=== PATIENT | male | born 1980 | race Caucasian/White ===

== ENCOUNTER 2016-07-27 15:16 | Inpatient (IN) | payer BC ==
[~2016-07-27] VITALS: Ht 190.5 cm; Wt 89.5 kg
[~2016-07-27 15:16] MED LIST: CYAN100061 SL; LEVO500T10 PO
[2016-07-27 15:31] VITALS: Ht 190.5 cm; Wt 89.5 kg
[2016-07-27] MEDS ORDERED: morphine 4 MG/ML VIAL IV STA ×2 (15:37→17:44)
[2016-07-27] MEDS ORDERED: ONDANSETRON 4 MG INJ IV STA (15:37)
[2016-07-27] MEDS ORDERED: SOD CHLORIDE 0.9% 1,000 ML IV STA (15:55)
[2016-07-27 15:56] LABS: ADD SCAN DIFF NO
[2016-07-27 15:57] LABS: BASOPHILS % 0.5 % (0.0-2.0); EOSINOPHILS % 0.7 % (0.0-7.0); HEMATOCRIT 43.6 % (42.0-52.0); HEMOGLOBIN 14.7 g/dl (14.0-18.0); LYMPHOCYTES # 1.8 10^3/ul (0.8-2.9); LYMPHOCYTES % 28.8 % (15.0-51.0); MEAN CORPUSCULAR HEMOGLOBIN 31.1 pg (29.0-33.0); MEAN CORPUSCULAR HGB CONC 33.7 g/dl (32.0-37.0); MEAN CORPUSCULAR VOLUME 92.2 fl (82.0-101.0); MEAN PLATELET VOLUME 11.9 fl (7.4-10.4); MONOCYTE # 0.7 10^3/ul (0.3-0.9); MONOCYTES % 11.2 % (0.0-11.0); NEUTROPHIL # 3.5 10^3/ul (1.6-7.5); NEUTROPHILS % 58.3 % (39.0-77.0); PLATELET COUNT 121 10^3/UL (140-415); RED BLOOD COUNT 4.73 10^6/ul (4.70-6.10); RED CELL DISTRIBUTION WIDTH 12.6 % (11.5-14.5); WHITE BLOOD COUNT 6.1 10^3/ul (4.8-10.8)
--- NOTE | 2016-07-27 15:58 | ERA ---
ER Documentation Chief Complaint Date/Time DATE: 07/27/16 TIME: 15:35 Chief Complaint CAME IN VIA INTAKE DUE TO EXTREME GROIN PAIN DUE TO HERNIA HPI 35-year-old male history of gastritis/GERD, vitamin B12 deficiency, varicocele, epididymitis and inguinal hernias refer to the ED by Dr. Marky Phillips for evaluation of a 1 day history of increasing, severe, nonradiating left groin pain. Patient denies nausea, vomiting, diarrhea or constipation. No testicular pain or swelling. No dysuria, polyuria or flank pain. Pain is exacerbated by straining. No relieving factors. No chest pain or palpitations. No shortness of breath or cough. No fevers or chills. ROS All systems reviewed and are negative except as per history of present illness. Medications Home Meds Discontinued Reported Medications Levofloxacin* (Levofloxacin*) 500 Mg Tablet, 500 MG PO DAILY for FOR TESTICLE INFECTION, TAB 12/30/15 Cyanocobalamin* (Vitamin B-12* SL) 1,000 Mcg Tab.subl, 1000 MCG SL Q7D, TAB 08/13/15 Allergies Allergies: Coded Allergies: No Known Allergy (Verified , 07/27/16) PMhx/Soc Reviewed in chart. As per HPI. History of Surgery: No Anesthesia Reaction: No Hx Neurological Disorder: No Hx Respiratory Disorders: No Hx Cardiac Disorders: No Hx Psychiatric Problems: No Hx Miscellaneous Medical Probl: Yes (VITAMIN B12 DEFICIENCY.) Hx Alcohol Use: Yes (OCCASIONAL) Hx Substance Use: No Hx Tobacco Use: No Smoking Status: Never smoker FmHx No stroke or cancer Physical Exam Vitals Vital Signs Date Time Temp Pulse Resp B/P Pulse Ox O2 Delivery O2 Flow Rate FiO2 07/27/16 15:31 98.4 81 18 112/66 100 07/27/16 15:20 98.3 20 112/66 Room Air Physical Exam Const: Alert, moderate distress due to pain Head: Atraumatic Eyes: Normal Conjunctiva ENT: Normal External Ears, Nose and Mouth. Neck: Full range of motion..~ No meningismus. Resp: Clear to auscultation bilaterally Cardio: Regular rate and rhythm, no murmurs Abd: Soft. Bilateral inguinal hernias with left greater than right groin tenderness. Mild periumbilical tenderness. No masses or abnormal pulsations. No rebound or guarding. Skin: No petechiae or rashes Back: No midline or flank tenderness Ext: No cyanosis, or edema Neur: Awake and alert Psych: Normal Mood and Affect Result Diagram: 07/27/16 1545 07/27/16 1545 Results 24 hrs Laboratory Tests Test 07/27/16 15:45 Activated Partial Thromboplast Time 25.2Sec Alanine Aminotransferase (ALT/SGPT) 21IU/L Albumin 4.2g/dl Albumin/Globulin Ratio 1.40 Alkaline Phosphatase 82IU/L Anion Gap 17 Aspartate Amino Transf (AST/SGOT) 22IU/L Basophils # 0.010^3/ul Basophils % 0.5% Blood Urea Nitrogen 17mg/dl Calcium Level 9.3mg/dl Carbon Dioxide Level 26mmol/L Chloride Level 103mmol/L Creatinine 0.91mg/dl Direct Bilirubin 0.00mg/dl Eosinophils # 0.010^3/ul Eosinophils % 0.7% Globulin 3.00g/dl Glucose Level 86mg/dl Hematocrit 43.6% Hemoglobin 14.7g/dl INR International Normalized Ratio 0.91 Indirect Bilirubin 0.2mg/dl Lymphocytes # 1.810^3/ul Lymphocytes % 28.8% Mean Corpuscular Hemoglobin 31.1pg Mean Corpuscular Hemoglobin Concent 33.7g/dl Mean Corpuscular Volume 92.2fl Mean Platelet Volume 11.9fl Monocytes # 0.710^3/ul Monocytes % 11.2% Neutrophils # 3.510^3/ul Neutrophils % 58.3% Nucleated Red Blood Cells # 0.010^3/ul Nucleated Red Blood Cells % 0.0/100WBC Platelet Count 84103^3/UL Potassium Level 3.8mmol/L Prothrombin Time 12.2Sec Prothrombin Time Ratio 1.0 Red Blood Count 4.7310^6/ul Red Cell Distribution Width 12.6% Sodium Level 142mmol/L Total Bilirubin 0.2mg/dl Total Protein 7.2g/dl White Blood Count 6.110^3/ul Current Medications Medications (Trade) Dose Ordered Sig/Néstor Route PRN Reason Start Time Stop Time Status Last Admin Dose Admin Morphine Sulfate (morphine) 4 mg ONCE STAT IV 07/27/16 15:37 07/27/16 15:39 DC 07/27/16 15:48 Ondansetron HCl 4 mg 4 mg ONCE STAT IV 07/27/16 15:37 07/27/16 15:39 DC 07/27/16 15:48 Sodium Chloride (NS) 1,000 ml @ 1,000 mls/hr Q1H STAT IV 07/27/16 15:55 07/27/16 16:54 DC 07/27/16 20:03 IV Flush 10 ml 10 ml STK-MED ONCE .ROUTE 07/27/16 17:21 07/27/16 17:22 DC 07/27/16 17:36 Sodium Chloride (NS) 100 ml @ ud STK-MED ONCE .ROUTE 07/27/16 17:21 07/27/16 17:22 DC 07/27/16 17:36 Iohexol (Omnipaque 300mg/ ml) 150 ml STK-MED ONCE .ROUTE 07/27/16 17:21 07/27/16 17:22 DC 07/27/16 17:36 Morphine Sulfate (morphine) 4 mg ONCE STAT IV 07/27/16 17:44 07/27/16 17:45 DC IMAGING: PROCEDURE: XR Chest. CLINICAL INDICATION: Abdomen pain. TECHNIQUE: Single frontal view. COMPARISON: 08/13/2015. FINDINGS: The lungs are clear. The heart size is normal. There is no pleural effusion. There is no pneumothorax. IMPRESSION: 1. Normal chest radiograph. 2. No change from 08/13/2015. RPTAT: QQ .Orion Oakley MD, Date Time Electronically viewed and signed by .Orion Oakley MD, on 07/27/2016 17:30 .R/ Procedures/MDM DOCUMENTS REVIEWED: ED nurse, prior ED, prior records REEXAMINATION/REEVALUATION: Time: 17:55. Increasing pain. Morphine 4 mg ordered. MEDICAL DECISION MAKIN-year-old male history of gastritis/GERD, vitamin B12 deficiency, varicocele, epididymitis and inguinal hernias refer to the ED by Dr. Marky Phillips for evaluation of a 1 day history of increasing, severe, nonradiating left groin pain. CT consistent with bilateral inguinal hernias and umbilical hernia containing fat only. No evidence of obstruction, strangulation or herniation. No other acute intra-abdominal process identified. Patient with intractable pain will be admitted to [facility] for urgent surgical consultation and intervention. Counseled patient regarding diagnosis, diagnostic results and plan for admission. CALLS/CONSULTS: Time 15:45, Dr. Taj Phillips, Recommends CT scan of the abdomen and pelvis at admission to [facility]. CALLS/CONSULTS: Time 17:40, Dr. Rey PATIENT CARE TRANSITIONED: Time: 18:40, Dr. Rey. Departure Diagnosis: Primary Impression: Acute abdominal pain Additional Impressions: Bilateral inguinal hernia Qualified Code: K40.21 - Bilateral recurrent inguinal hernia without obstruction or gangrene Umbilical hernia Qualified Code: K42.9 - Umbilical hernia without obstruction and without gangrene Condition: Serious SUBHA QUEEN MD Jul 27, 2016 15:58
[2016-07-27 16:06] LABS: INR 0.91; PROTIME 12.2 Sec (12.2-14.2)
[2016-07-27 16:07] LABS: PARTIAL THROMBOPLASTIN TIME 25.2 Sec (25.0-35.0)
[2016-07-27 16:12] LABS: ALBUMIN 4.2 g/dl (3.3-4.9)
[2016-07-27 16:13] LABS: POTASSIUM 3.8 mmol/L (3.5-5.1)
[2016-07-27 16:15] LABS: ALBUMIN/GLOBULIN RATIO 1.4; BILIRUBIN,INDIRECT 0.2 mg/dl (0-1.1); BILIRUBIN,TOTAL 0.2 mg/dl (0.2-1.3); CREATININE 0.91 mg/dl (0.61-1.24); TOTAL PROTEIN 7.2 g/dl (6.1-8.1)
[2016-07-27 16:16] LABS: CALCIUM 9.3 mg/dl (8.4-10.2)
[2016-07-27] MEDS ORDERED: IOHEXOL 300MG/ML 150 ML BTL ONE (17:21)
[2016-07-27] MEDS ORDERED: SOD CHLORIDE 0.9% 100 ML ONE (17:21)
--- NOTE | 2016-07-27 17:30 | RADRPT ---
PROCEDURE: XR Chest. CLINICAL INDICATION: Abdomen pain. TECHNIQUE: Single frontal view. COMPARISON: 08/13/2015. FINDINGS: The lungs are clear. The heart size is normal. There is no pleural effusion. There is no pneumothorax. IMPRESSION: 1. Normal chest radiograph. 2. No change from 08/13/2015. RPTAT: QQ .Orion Oakley MD, MD Date Time Electronically viewed and signed by .Orion Oakley MD, MD on 07/27/2016 17:30 .R/
--- NOTE | 2016-07-27 18:10 | RADRPT ---
PROCEDURE: CT abdomen and pelvis with contrast. CLINICAL INDICATION: Bilateral groin pain. TECHNIQUE: CT scan of the abdomen and pelvis with contrast was performed [facility] The patient was scanned following the uncomplicated intravenous administration 100 cc of Omnipa que 300. Coronal and sagittal reformatted images were obtained from the axial source images. One or more of the following does reduction techniques were used: Automated exposure control; adjustment of the mA and/or kV according to patient size; use of the aorta of reconstruction technique. Images were reviewed on a high-resolution PACS workstation. The total exam CTDI equals 10.92 mGy and the to presley exam DLP equals 709.82 mGy-cm. COMPARISON: CT abdomen pelvis 02/25/2015 FINDINGS: Evaluation of the lung bases is limited by breathing artifact. Lung bases are clear. The heart siz e is normal, without pericardial thickening or effusion. The liver, spleen, and pancreas are normal. The gallbladder is normal. The adrenal glands are symmetric and normal. The kidneys show normal and symmetric enhancement. No renal calculus or obstructive uropathy is seen. The aorta is of normal caliber. There is no retroperitoneal lymph node enlargment. There is no evidence of large or small bowel obstruction. There is moderate retained colonic stool. The appendix filled with gas and stool is identified. There is no wall thickening or adjacent infl ammatory change. No free fluid or fluid collections are identified. No inflammatory changes are see n. There is a tiny periumbilical hernia containing only fat. The bladder is within normal limits. There is no evidence of pelvic sidewall lymph node enlargement . There is no pelvic free fluid. There is a small right and tiny left inguinal hernia containing o nly fat. A moderate degenerative changes at L4-L5. There is suggestion of a moderate diffuse disk bulge. IMPRESSION: 1. No CT evidence of acute intra-abdominal or pelvic process. 2. Moderate retained colonic stool, correlate with constipation. 3. Tiny periumbilical hernia containing only fat. 4. Small right and tiny left inguinal hernias containing only fat. 5. Moderate degenerative changes at L4-5 RPTAT: HJBF .Janes Huerta MD, MD Date Time Electronically viewed and signed by .Janes Huerta MD, MD on 07/27/2016 18:10 .B/
[2016-07-27] MEDS ORDERED: ONDANSETRON 4 MG INJ IV PRN ×2 (19:00→22:30)
[2016-07-27] MEDS ORDERED: ACETAMINOPHEN 325 MG TAB PO PRN (19:00)
[2016-07-27 19:15] VITALS: TEMP 97.8
[2016-07-27] MEDS ORDERED: DIPHENHYDRAMINE 50 MG INJ IV ONE (20:00)
[2016-07-27 21:06] VITALS: BP 120/72; PULSE 79; RESP 18
--- NOTE | 2016-07-27 22:28 | HP ---
Date/Time of Note Date/Time of Note DATE: 07/27/16 TIME: 22:19 Assessment/Plan VTE Prophylaxis VTE Prophylaxis Intervention: SCD's Assessment/Plan Problems: (1) Bilateral inguinal hernia Status: Acute Comment: G-surg. planning surgery for this tomorrow. Pt. appears healthy and low-risk for surgical intervention. May proceed without further risk stratification. Qualifiers: Obstruction and gangrene presence: without obstruction or gangrene Recurrence: recurrent Qualified Code: K40.21 - Bilateral recurrent inguinal hernia without obstruction or gangrene HPI/ROS Admit Date/Time Admit Date/Time Jul 27, 2016 at 18:42 Hx of Present Illness 35 y/o H M w/ h/o intestinal malabsorption syndrome resulting in chronic B12 deficiency and vague complaints in [facility] until last year when he developed recurrent epididymitis for which he was seeking urological treatments. Pt. went from one urologist to another but noticed recurrence of inguinal pains. Most recent urologist told him his epididymal region seemed normal but that he might have hernia. This was confirmed by general surgeon who said there was R inguinal hernia and thinning of tissue on L along w/ umbilical region as well. Pt. planning elective hernia repair. However, today at work pt. developed severe L inguinal pain and exam confirmed by general surgeon who said tissue popping out through hernia. Pt. admitted for hernia repair tomorrow. ROS Constitutional: no complaints Eyes: no complaints ENT: no complaints Respiratory: no complaints Cardiovascular: no complaints Gastrointestinal: pain (B inguinalo region, now R > L) Genitourinary: no complaints Musculoskeletal: no complaints Neurologic: no complaints PMH/Family/Social Past Medical History Medical History: GERD, other (intestinal malabsorption syndrome w/ chronic vitamin B12 deficiency, diverticulosis, thrombocytopenia) Past Surgical History Past Surgical Hx: other (L testicular surgery, mandibular cystectomy, L second toe spur removal) Family History Significant Family History: heart disease (MGF), cancer (breast-mother, maternal aunt, brain-MGF) Social History Alcohol Use: occasionally Smoking Status: Former smoker Drug Use: none Exam/Review of Systems Vital Signs Vitals Vital Signs Date Time Temp Pulse Resp B/P Pulse Ox O2 Delivery O2 Flow Rate FiO2 07/27/16 21:06 79 18 120/72 99 Room Air 07/27/16 19:15 97.8 Exam Constitutional: alert, oriented, well developed Psych: nl mood/affect, no complaints Eyes: EOMI, PERRL, nl conjunctiva, nl lids, nl sclera ENMT: mucosa pink and moist, nl external ears & nose Neck: non-tender, supple, No bruits, No masses, No thyromegaly Respiratory: clear to auscultation, normal air movement Cardiovascular: nl pulses, regular rate and rhythm, No edema, No murmurs/extra sounds, No rub Gastrointestinal: bowel sounds, nl liver, spleen, non-tender, soft, No mass, No rebound or guarding Musculoskeletal: nl extremities to inspection Extremities: normal pulses, No clubbing, No cyanosis, No edema Neurological: DIRECTOR OF SOFTWARE ENGINEERING II-XII intact, nl mental status, nl speech, nl strength Labs Result Diagram: 07/27/16 1545 07/27/16 1545 STEVEN MÉNDEZ MD Jul 27, 2016 22:28
[2016-07-27] MEDS ORDERED: CYANOCOBALAMIN 1000 MCG INJ IM ONE (22:30)
[2016-07-27] MEDS ORDERED: NACL 0.9% 3 ML SYG IV SCH (22:30)
[2016-07-27] MEDS ORDERED: MAGNESIUM HYDROXIDE 30ML CUP PO PRN (22:30)
[2016-07-27] MEDS ORDERED: BISACODYL 10 MG SUPP PR PRN (22:30)
[2016-07-27] MEDS ORDERED: DOCUSATE SODIUM 100 MG CAP PO PRN (22:30)
[2016-07-27] MEDS ORDERED: BISACODYL (EC) 5 MG TAB PO PRN (22:30)
[2016-07-27] MEDS ORDERED: DIPHENHYDRAMINE 50 MG INJ IV PRN (22:30)
[2016-07-27] MEDS ORDERED: morphine 4 MG/ML VIAL IV PRN (22:30)
--- NOTE | 2016-07-27 23:04 | CONS ---
Date/Time of Note Date/Time of Note DATE: 07/27/16 TIME: 22:51 Assessment/Plan Assessment/Plan Chief Complaint/Hosp Course 1. Severe unrelenting pain 2nd left inguinal hernia -pain control -ice -surgical repair during this hospitalization 2. Right inguinal hernia -repair with above 3. Ventral/umbilical hernia -laparoscopic repair with above 4. Intestinal malabsorption with chronic vit b 12 deficiency -vit b 12 -diet/lifestyle optimization 5. GERD -avoid ppi 2nd #4 -diet/lifestyle optimization 6. Diverticulosis -diet/lifestyle optimization 7. Hx of Epididymitis, varicocele, and prostatitis -gu f/u 8. Thrombocytopenia -monitor Thank you very much for consulting me in this patient's care, Problems: Consultation Date/Type/Reason Admit Date/Time Jul 27, 2016 at 18:42 Date of Consultation: Jul 27, 2016 Type of Consultation: Gen Surgery Reason for Consultation Left inguinal hernia, severe pain Right inguinal hernia, painful Referring Provider: STEVEN MÉNDEZ MD Hx of Present Illness Gaurav Ramsey is a 35yo male with multiple comorbidities and hx of urological issues has been having right inguinal pain and discomfort which was found to be probably 2nd inguinal hernia. The plan was for him to have an elective surgical intervention at a later time. However, today, he developed severe pain in left groin associated with nausea but no other symptoms. Pain persisted without resolution. On examination, he was found to have a newly formed left inguinal hernia. Pain is not subsiding and it is persistent. Patient will benefit from surgical intervention during this hospitalization 2nd unrelenting pain. Constitutional: No chills, No diaphoresis, No febrile Eyes: No discharge, No redness ENT: No bleeding, No congestion, No discharge, No dysphagia Respiratory: No cough, No shortness of breath, No sputum, No wheezing Cardiovascular: No chest pain, No edema, No lightheadedness, No orthopenea Gastrointestinal: flatus, nausea, pain (B inguinalo region, now R > L), passing stool, No blood, No vomiting Genitourinary: No bleeding, No dysuria, No flank pain Musculoskeletal: No back pain, No bone/joint pain, No neck pain Skin: No bruising, No erythema, No pruritis, No rash Neurologic: No confusion, No dizziness, No headache, No syncope Endocrine: No dry skin, No polydypsia, No polyuria Lymphatic: No adenopathy, No lymphadema, No tender nodes Psychological: nl mood/affect, No confusion Immunologic: No pruritis, No rhinitis Past Medical History GERD Intestinal malabsorption syndrome w/ chronic vitamin B12 deficiency Diverticulosis Thrombocytopenia Epididymitis Varicocele & testicular pain hx Prostatitis Past Surgical History Lt testicular surgery Mandibular cystectomy Lt second toe spur removal Family History Significant Family History: other (Heart disease (MGF), Breast cancer-mother, maternal aunt. Brain ca: MGF) Social History [facility] wound [facility] Alcohol Use: occasionally Smoking Status: Former smoker Drug Use: none Exam/Review of Systems Vital Signs Vitals Vital Signs Date Time Temp Pulse Resp B/P Pulse Ox O2 Delivery O2 Flow Rate FiO2 07/27/16 21:06 79 18 120/72 99 Room Air 07/27/16 19:15 97.8 Exam Constitutional: alert, distress (mild), oriented Psych: nl mood/affect, No anxiety, No confusion Head: atraumatic, normocephalic, No hematomas, No lacerations Eyes: EOMI, PERRL, nl conjunctiva, No icteric ENMT: mucosa pink and moist, nl external ears & nose, nl lips & teeth, nl nasal mucosa & septum Neck: non-tender, supple, No jvd, No thyromegaly Respiratory: normal air movement, No congested cough, No labored breathing Cardiovascular: regular rate and rhythm, No edema Gastrointestinal: other (Bilatera inguinal and ventral/umbilical hernias), soft , tender (Left inguinal >> right inguinal.), No distended, No firm, No rebound or guarding Genitourinary - Male: nl penis, nl scrotum (non tender), No CVA tenderness, No discharge Musculoskeletal: nl extremities to inspection, nl gait and stance, No joint tenderness Extremities: normal pulses, No calf tenderness, No cyanosis Neurological: nl mental status, nl speech, nl strength, No confused, No focal weakness Skin: nl turgor, No diaphoresis, No ecchymosis, No laceration, No rash or lesions Lymph: nl lymph nodes, nontender Results Result Diagram: 07/27/16 1545 07/27/16 1545 Results 24 hrs Laboratory Tests Test 07/27/16 15:45 Activated Partial Thromboplast Time 25.2 Alanine Aminotransferase (ALT/SGPT) 21 Albumin 4.2 Albumin/Globulin Ratio 1.40 Alkaline Phosphatase 82 Anion Gap 17 H Aspartate Amino Transf (AST/SGOT) 22 Basophils # 0.0 Basophils % 0.5 Blood Urea Nitrogen 17 Calcium Level 9.3 Carbon Dioxide Level 26 Chloride Level 103 Creatinine 0.91 Direct Bilirubin 0.00 Eosinophils # 0.0 Eosinophils % 0.7 Globulin 3.00 Glucose Level 86 Hematocrit 43.6 Hemoglobin 14.7 INR International Normalized Ratio 0.91 Indirect Bilirubin 0.2 Lymphocytes # 1.8 Lymphocytes % 28.8 Mean Corpuscular Hemoglobin 31.1 Mean Corpuscular Hemoglobin Concent 33.7 Mean Corpuscular Volume 92.2 Mean Platelet Volume 11.9 H Monocytes # 0.7 Monocytes % 11.2 H Neutrophils # 3.5 Neutrophils % 58.3 Nucleated Red Blood Cells # 0.0 Nucleated Red Blood Cells % 0.0 Platelet Count 121 L Potassium Level 3.8 Prothrombin Time 12.2 Prothrombin Time Ratio 1.0 Red Blood Count 4.73 Red Cell Distribution Width 12.6 Sodium Level 142 Total Bilirubin 0.2 Total Protein 7.2 White Blood Count 6.1 # Medications Medications Current Medications Potassium Chloride/Dextrose/ Sod Cl (D5-1/2ns + KCl 20 Meq) 1,000 ml @ 125 mls/ hr Q8H IV ; Start 07/27/16 at 22:13 Ondansetron HCl (Zofran Inj) 4 mg Q6H PRN IV NAUSEA AND/OR VOMITING; Start at 22:30 Morphine Sulfate (morphine) 4 mg Q4H PRN IV PAIN; Start 07/27/16 at 22:30 Docusate Sodium (Colace) 100 mg Q12H PRN PO CONSTIPATION; Start 07/27/16 at 22: 30 Magnesium Hydroxide (Milk Of Mag) 30 ml DAILY PRN PO CONSTIPATION; Start at 22:30 Bisacodyl (Dulcolax) 5 mg DAILY PRN PO CONSTIPATION; Start 07/27/16 at 22:30 Bisacodyl (Dulcolax Supp) 10 mg DAILY PRN AL CONSTIPATION; Start 07/27/16 at 22 :30 Diphenhydramine HCl (Benadryl) 25 mg Q6H PRN IV ALLERGIC REACTION; Start at 22:30 JENNIFER PEARCE MD Jul 27, 2016 23:01
[2016-07-27] MEDS: D5W-0.45 NACL + KCL 20 MEQ 1,000 ML IV SCH (23:54)
[2016-07-28] MEDS: D5W-0.45 NACL + KCL 20 MEQ 1,000 ML IV SCH ×3 (06:13→16:10)
[2016-07-28] MEDS ORDERED: KETOROLAC 30 MG INJ IV ONE ×2 (06:57→23:30)
[2016-07-28] MEDS ORDERED: GLYCOPYRROLATE 0.4 MG INJ ONE (07:00)
[2016-07-28] MEDS ORDERED: ROCURONIUM 50 MG INJ ONE ×2 (07:00→22:30)
[2016-07-28] MEDS ORDERED: NEOSTIGMINE 3 MG/3 ML SYRINGE ONE (07:00)
[2016-07-28] MEDS ORDERED: SEVOFLURANE 15 MIN ONE (07:00)
[2016-07-28] MEDS ORDERED: KETOROLAC 30 MG INJ ONE (07:00)
[2016-07-28 08:03] VITALS: BP 102/50; RESP 16
[2016-07-28] MEDS ORDERED: MEPERIDINE 50 MG INJ IV PRN (11:00)
[2016-07-28 12:29] LABS: ADD UMIC NO; URINE BILIRUBIN (Dip) NEGATIVE (NEGATIVE); URINE BLOOD (Dip) NEGATIVE (NEGATIVE); URINE COLOR LT. YELLOW (YELLOW); URINE GLUCOSE (Dip) NEGATIVE (NEGATIVE); URINE KETONES (Dip) NEGATIVE (NEGATIVE); URINE LEUKOCYTE ESTERASE (Dip) NEGATIVE (NEGATIVE); URINE NITRITE (Dip) NEGATIVE (NEGATIVE); URINE TOTAL PROTEIN (Dip) NEGATIVE (NEGATIVE); URINE UROBILINOGEN (Dip) 0.2 E.U./dL (0.1-1.0)
[2016-07-28] MEDS: HYDROmorphONE 1 MG/ML SYG IV PRN ×2 (13:54→18:43)
[2016-07-28 20:00] VITALS: BP 112/66; RESP 74
--- NOTE | 2016-07-28 20:00 | PN ---
Date/Time of Note Date/Time of Note DATE: 07/28/16 TIME: 19:55 Assessment/Plan VTE Prophylaxis VTE Prophylaxis Intervention: SCD's Lines/Catheters IV Catheter Type (from Nrsg): Saline Lock Assessment/Plan Problems: (1) Bilateral inguinal hernia Status: Acute Comment: Change pain therapy from morphine to dilaudid. Await surgical intervention. Maintain NPO unless surgery cancelled. Qualifiers: Obstruction and gangrene presence: without obstruction or gangrene Recurrence: recurrent Qualified Code: K40.21 - Bilateral recurrent inguinal hernia without obstruction or gangrene Subjective 24 Hr Interval Summary Constitutional: no complaints Respiratory: no complaints Cardiovascular: no complaints Gastrointestinal: pain (BLQ) Genitourinary: no complaints Musculoskeletal: no complaints Neurologic: headache (which he attributes to morphine) Exam/Review of Systems Vital Signs Vitals VS - Last 72 Hours, by Label Date Time Temp Pulse Resp B/P Pulse Ox O2 Delivery O2 Flow Rate FiO2 07/28/16 08:03 97.6 65 16 102/50 97 07/27/16 21:06 98.0 79 18 120/72 99 Room Air 07/27/16 19:15 97.8 18 143/80 Room Air 07/27/16 15:31 98.4 81 18 112/66 100 07/27/16 15:20 98.3 20 112/66 Room Air Vital Signs Date Time Temp Pulse Resp B/P Pulse Ox O2 Delivery O2 Flow Rate FiO2 07/28/16 08:03 97.6 65 16 102/50 97 07/27/16 21:06 Room Air Exam Constitutional: alert, oriented, well developed Psych: nl mood/affect, no complaints Respiratory: clear to auscultation, normal air movement Cardiovascular: nl pulses, regular rate and rhythm, No edema, No murmurs/extra sounds, No rub Gastrointestinal: bowel sounds, nl liver, spleen, soft, tender (BLQ), No mass, No non-tender, No rebound or guarding Musculoskeletal: nl extremities to inspection Extremities: normal pulses, No clubbing, No cyanosis, No edema Neurological: UPKEEP WORKER II-XII intact, nl mental status, nl speech, nl strength Results Result Diagram: 07/27/16 1545 07/27/16 1545 Results 24 hrs Laboratory Tests Test 07/28/16 10:35 Urine Color LT. YELLOW Urine Clarity CLEAR Urine pH 5.5 Urine Specific Lindstrom 1.020 Urine Ketones NEGATIVE Urine Nitrite NEGATIVE Urine Bilirubin NEGATIVE Urine Urobilinogen 0.2 E.U./dL Urine Leukocyte Esterase NEGATIVE Urine Hemoglobin NEGATIVE Urine Glucose NEGATIVE Urine Total Protein NEGATIVE Medications Medications Current Medications Potassium Chloride/Dextrose/ Sod Cl (D5-1/2ns + KCl 20 Meq) 1,000 ml @ 125 mls/ hr Q8H IV Last administered on 07/28/16 16:10; Admin Dose 125 MLS/HR; Start at 22:13 Ondansetron HCl (Zofran Inj) 4 mg Q6H PRN IV NAUSEA AND/OR VOMITING; Start at 22:30 Docusate Sodium (Colace) 100 mg Q12H PRN PO CONSTIPATION; Start 07/27/16 at 22: 30 Magnesium Hydroxide (Milk Of Mag) 30 ml DAILY PRN PO CONSTIPATION; Start at 22:30 Bisacodyl (Dulcolax) 5 mg DAILY PRN PO CONSTIPATION; Start 07/27/16 at 22:30 Bisacodyl (Dulcolax Supp) 10 mg DAILY PRN RI CONSTIPATION; Start 07/27/16 at 22 :30 Diphenhydramine HCl (Benadryl) 25 mg Q6H PRN IV ALLERGIC REACTION; Start at 22:30 Hydromorphone HCl (Dilaudid) 1 mg Q4H PRN IV PAIN Last administered on 18:43; Admin Dose 1 MG; Start 07/28/16 at 13:30 STEVEN MÉNDEZ MD Jul 28, 2016 20:00
--- NOTE | 2016-07-28 21:27 | PN ---
Date/Time of Note Date/Time of Note DATE: 07/28/16 TIME: 21:25 Assessment/Plan Lines/Catheters IV Catheter Type (from Nrsg): Saline Lock Assessment/Plan Chief Complaint/Hosp Course 1. Severe unrelenting pain 2nd left inguinal hernia -pain control -ice -surgical repair today 2. Right inguinal hernia -repair with above 3. Ventral/umbilical hernia -laparoscopic repair with above 4. Intestinal malabsorption with chronic vit b 12 deficiency -vit b 12 -diet/lifestyle optimization 5. GERD -avoid ppi 2nd #4 -diet/lifestyle optimization 6. Diverticulosis -diet/lifestyle optimization 7. Hx of Epididymitis, varicocele, and prostatitis -gu f/u 8. Thrombocytopenia -monitor Thank you, Problems: Subjective 24 Hr Interval Summary Pain. No f/c. No n/v. No cp/sob. No cough. No rhodes/dizzy/visual or neuro changes. No pyuria/dysuria. No rashes. No bloating. Bowel function. Exam/Review of Systems Vital Signs Vitals Vital Signs Date Time Temp Pulse Resp B/P Pulse Ox O2 Delivery O2 Flow Rate FiO2 07/28/16 20:00 98.5 74 74 112/66 98 07/27/16 21:06 Room Air Exam Free Text/Dictation Constitutional: alert, nad, oriented Psych: nl mood/affect, No anxiety, No confusion Head: atraumatic, normocephalic, No hematomas, No lacerations Eyes: EOMI, PERRL, nl conjunctiva, No icteric ENMT: mucosa pink and moist, nl external ears & nose, nl lips & teeth, nl nasal mucosa & septum Neck: non-tender, supple, No jvd, No thyromegaly Respiratory: normal air movement, No congested cough, No labored breathing Cardiovascular: regular rate and rhythm, No edema Gastrointestinal: other (Bilateral inguinal and ventral/umbilical hernias), soft, tender (Left inguinal >> right inguinal.), No distended, No firm, No rebound or guarding Genitourinary - Male: nl penis, nl scrotum (non tender), No CVA tenderness, No discharge Musculoskeletal: nl extremities to inspection, nl gait and stance, No joint tenderness Extremities: normal pulses, No calf tenderness, No cyanosis Neurological: nl mental status, nl speech, nl strength, No confused, No focal weakness Skin: nl turgor, No diaphoresis, No ecchymosis, No laceration, No rash or lesions Lymph: nl lymph nodes, nontender Results Result Diagram: 07/27/16 1545 07/27/16 1545 JENNIFER PEARCE MD Jul 28, 2016 21:27
[2016-07-28] MEDS ORDERED: DIPHENHYDRAMINE 50 MG INJ ONE (22:30)
[2016-07-28] MEDS ORDERED: ONDANSETRON 4 MG INJ ONE (22:30)
[2016-07-28] MEDS ORDERED: MIDAZOLAM 1 MG/ML 2 ML INJ ONE (22:30)
[2016-07-28] MEDS ORDERED: PROPOFOL 20 ML ONE (22:30)
[2016-07-28] MEDS ORDERED: DEXAMETHASONE 4 MG/ML 1 ML INJ ONE (22:30)
[2016-07-28] MEDS ORDERED: EPHEDrine SULFATE 50 MG/5 ML SYG ONE (22:31)
[2016-07-28] MEDS ORDERED: CEFAZOLIN 1 GM INJ ONE (22:31)
[2016-07-28] MEDS ORDERED: LIDOCAINE 1% (STERILE-PAK) 30 ML INJ ONE (22:31)
[2016-07-28] MEDS ORDERED: BUPIVACAINE 0.25%/EPI (SDV) 30 ML INJ ONE (22:31)
[2016-07-28] MEDS ORDERED: POLYMYXIN/BACITRACIN 1L IRRIG ONE (23:22)
[2016-07-28] MEDS ORDERED: hydrALAzine 20 MG INJ IV PRN (23:30)
[2016-07-28] MEDS ORDERED: DIPHENHYDRAMINE 50 MG INJ IV PRN (23:30)
[2016-07-28] MEDS ORDERED: HYDROmorphONE (0.2 MG/ML) 10ML SYG IV PRN ×2 (23:30)
[2016-07-28] MEDS ORDERED: FENTAnyl 50 MCG/ML VIAL IV PRN (23:30)
[2016-07-28] MEDS ORDERED: ONDANSETRON 4 MG INJ IV PRN (23:30)
[2016-07-28] MEDS ORDERED: EPHEDrine SULFATE 50 MG/5 ML SYG IV PRN (23:30)
[2016-07-28] MEDS ORDERED: MIDAZOLAM 1 MG/ML 2 ML INJ IV PRN (23:30)
[2016-07-28] MEDS ORDERED: MEPERIDINE 25 MG INJ IV PRN (23:30)
[2016-07-29] VITALS (9 sets, daily range): BP systolic 115–146; BP diastolic 58–78; PULSE 74–95; RESP 11–24
[2016-07-29] MEDS ORDERED: GLYCOPYRROLATE 1 MG INJ ONE (00:18)
[2016-07-29] MEDS ORDERED: NEOSTIGMINE 3 MG/3 ML SYRINGE ONE (00:18)
[2016-07-29] MEDS ORDERED: KETOROLAC 30 MG INJ ONE (00:54)
[2016-07-29] MEDS ORDERED: HYDROCODONE/APAP (5/325) TAB PO PRN ×2 (01:00)
[2016-07-29] MEDS ORDERED: KETOROLAC 15 MG INJ IV PRN (01:00)
[2016-07-29] MEDS: HYDROmorphONE (0.2 MG/ML) 10ML SYG IV PRN ×3 (01:03→01:25)
--- NOTE | 2016-07-29 01:11 | OPR ---
Date/Time of Note Date/Time of Note DATE: 07/29/16 TIME: 01:04 Operative Report Procedure Date: Jul 29, 2016 Preoperative Diagnosis 1. Bilateral inguinal hernias, symptomatic 2. Ventral hernia Postoperative Diagnosis 1. Bilateral inguinal direct symptomatic hernias 2. Ventral hernia Operation Performed 1. Laparoscopic bilateral inguinal herniorrhaphy 2. Open ventral herniorrhaphy 3. Local anesthetic injection, [id number] 4. Laparoscopic guided bilateral transversus abdominis plane block Surgeon: JENNIFER PEARCE MD Anesthesia: general (Plus local plus regional) Anesthesiologist: RAQUEL OLSON M.D. Estimated Blood Loss: 0 - 10 ml's Specimens None Tubes/Drains 10 x [address] meshes 2 Secure strap tacker Ethicon ventral patch Complications: None Pt Condition Post Procedure: stable Disposition: PACU Indications As per notes. Risks include but are not limited to bleeding, infection, abscess, seroma, hematoma, damage to intestines, damage to spermatic structures, loss of testicle , sensation loss to the thigh and scrotum, recurrence of hernia, chronic pain, need for re-operations or further surgeries, AR, stroke, PE, DVT, pneumonia, organ failures, or even . Procedure Description Patient was brought and placed supine on the operating table SCDs were placed, preoperative antibiotics were administered, all pressure points were well-padded , both arms were tucked, and after induction of anesthesia patient was prepped and draped in usual sterile fashion and timeout was performed. Incision was made in the supraumbilical region, abdomen was entered bluntly through the ventral hernia, 11 mm port applied, and then abdomen was insufflated to 15mmHg. Laparoscopy was performed with a 5 mm 30 scope. No injuries were identified. Bilateral inguinal direct hernias were identified. On either side of the abdomen, lateral to the rectus, avoiding the inferior epigastric vessels, 2 5 mm ports were inserted under direct visualization. All port sites were injected with quarter percent Marcaine with epi and 1% lidocaine prior to any incisions. Bilateral transversus abdominis plane block was performed under laparoscopic visualization to aid with pain control intra-and postoperatively. Patient was placed in Trendelenburg and initially left than right side up. The peritoneum was opened over the side of the hernia and the peritoneum was dissected off of the abdominal wall, inferior epigastric vessels, and spermatic structures. Care was taken not to injure any of the structures. The pubic tubercle was identified medially. There was complete hemostasis. Ventralex ST mesh was placed at the inguinal sites. Meshes was secured to the tubercle medially, anterior to the abdominal wall, and laterally to the abdominal wall using securestrap tacker. The peritoneum was pulled over the meshes and secured to itself fully covering the meshes using the same tacker. Ventral hernia fascia was closed with Endo Close and 0 Vicryl in a figure-of- eight manner after Ethibond 6 cm patch was placed at the site fully covering the defect. Ports and CO2 were removed under direct visualization. There was complete hemostasis. Wounds were thoroughly irrigated skin was closed with 4-0 Monocryl in subcuticular fashion. Dermabond was applied. Patient was extubated and transferred to recovery room in stable condition and all counts were correct and the end of the operation 2. JENNIFER PEARCE MD Jul 29, 2016 01:11
[2016-07-29] MEDS: HYDROmorphONE 1 MG/ML SYG IV PRN ×4 (03:19→17:17)
[2016-07-29] MEDS ORDERED: PANTOPRAZOLE (EC) 40 MG TAB PO SCH (06:00)
[2016-07-29] MEDS: D5W-0.45 NACL + KCL 20 MEQ 1,000 ML IV SCH ×4 (06:13→16:33)
--- NOTE | 2016-07-29 18:14 | PDOCDIS ---
Discharge Instructions CONDITION Patient Condition: Good HOME CARE INSTRUCTIONS: Diet Instructions: Regular ACTIVITY: Activity Restrictions: Slowly Increase Activity Avoid heavy lifting Avoid Heavy Housework Bathing Restrictions: Shower FOLLOW UP/APPOINTMENTS Appointments f/u w/ Dr. Phillips 1-2 weeks SCHOOL/WORK RELEASE May return to School/Work on: Aug 12, 2016 May return to School/Work with: No Restrictions STEVEN MÉNDEZ MD Jul 29, 2016 18:14
[2016-07-29] MEDS ORDERED: HYDR-3498 PO (18:16)
[2016-07-29] MEDS ORDERED: SENN-53 PO (18:16)
--- NOTE | 2016-07-29 18:22 | DS ---
Date/Time of Note Date/Time of Note DATE: 07/29/16 TIME: 18:19 Discharge Summary Admission/Discharge Info Admit Date/Time Jul 27, 2016 at 18:42 Discharge Date/Time 07/29/2016 Final Diagnosis B inguinal and ventral hernia now s/p repair Patient Condition: Good Consults Dr. Marky Phillips Procedures Laparoscopic bilateral inguinal herniorrhaphy, Open ventral herniorrhaphy Hx of Present Illness 35 y/o H M w/ h/o intestinal malabsorption syndrome resulting in chronic B12 deficiency and vague complaints in H until last year when he developed recurrent epididymitis for which he was seeking urological treatments. Pt. went from one urologist to another but noticed recurrence of inguinal pains. Most recent urologist told him his epididymal region seemed normal but that he might have hernia. This was confirmed by general surgeon who said there was R inguinal hernia and thinning of tissue on L along w/ umbilical region as well. Pt. planning elective hernia repair. However, today at work pt. developed severe L inguinal pain and exam confirmed by general surgeon who said tissue popping out through hernia. Pt. admitted for hernia repair tomorrow. Hospital Course Pt. admitted. Made NPO. Did not tolerate morphine due to headache. Changed to dilaudid which he did tolerate. Taken for herniorrhaphy which was done last night. Now doing well, POD#1. Tolerating po, no N/V. Cleared by surgery for d /c. Home Meds Active Scripts Sennosides* (Senna Lax*) 8.6 Mg Tablet, 1 TAB PO Q12H Y for CONSTIPATION for 7 Days, #14 TAB 0 Refills Prov:STEVEN MÉNDEZ MD 07/29/16 Hydrocodone Bit-Acetaminophen (Hydrocodone Bit-APAP) 5-325MG Tablet, 2 TAB PO Q4H Y for Pain 6-10 for 7 Days, #30 TAB 0 Refills Prov:STEVEN MÉNDEZ MD 07/29/16 Hydrocodone Bit-Acetaminophen (Hydrocodone Bit-APAP) 5-325MG Tablet, 1 TAB PO Q4H Y for Pain 1-5 for 7 Days, #30 TAB 0 Refills Prov:STEVEN MÉNDEZ MD 07/29/16 Discontinued Reported Medications Levofloxacin* (Levofloxacin*) 500 Mg Tablet, 500 MG PO DAILY for FOR TESTICLE INFECTION, TAB 12/30/15 Cyanocobalamin* (Vitamin B-12* SL) 1,000 Mcg Tab.subl, 1000 MCG SL Q7D, TAB 08/13/15 Follow-up Plan f/u w/ Dr. Phillips 1-2 weeks STEVEN MÉNDEZ MD Jul 29, 2016 18:22
--- NOTE | 2016-07-31 04:51 | ERA ---
ER Documentation Chief Complaint Date/Time DATE: 07/31/16 TIME: 04:49 Chief Complaint Left leg pain and shortness of breath HPI The patient is a 35-year-old male, presenting to the ER because of left leg pain for 1 day, and dyspnea after surgery ROS All systems reviewed and are negative except as per history of present illness. Medications Home Meds Active Scripts Albuterol Sulfate* (Ventolin HFA*) 18 Gm Hfa.aer.ad, 2 PUFF INHALATION Q4H, #1 INHALER Prov:STEVEN BECERRA MD 07/31/16 Sennosides* (Senna Lax*) 8.6 Mg Tablet, 1 TAB PO Q12H Y for CONSTIPATION for 7 Days, #14 TAB 0 Refills Prov:STEVEN MÉNDEZ MD 07/29/16 Hydrocodone Bit-Acetaminophen (Hydrocodone Bit-APAP) 5-325MG Tablet, 2 TAB PO Q4H Y for Pain 6-10 for 7 Days, #30 TAB 0 Refills Prov:STEVEN MÉNDEZ MD 07/29/16 Hydrocodone Bit-Acetaminophen (Hydrocodone Bit-APAP) 5-325MG Tablet, 1 TAB PO Q4H Y for Pain 1-5 for 7 Days, #30 TAB 0 Refills Prov:STEVEN MÉNDEZ MD 07/29/16 Discontinued Reported Medications Levofloxacin* (Levofloxacin*) 500 Mg Tablet, 500 MG PO DAILY for FOR TESTICLE INFECTION, TAB 12/30/15 Cyanocobalamin* (Vitamin B-12* SL) 1,000 Mcg Tab.subl, 1000 MCG SL Q7D, TAB 08/13/15 Allergies Allergies: Coded Allergies: No Known Allergy (Verified , 07/28/16) PMhx/Soc History of Surgery: Yes (left mandibular cystectomy, left second toe spur removal) Anesthesia Reaction: No Hx Neurological Disorder: No Hx Respiratory Disorders: No Hx Cardiac Disorders: No Hx Psychiatric Problems: No Hx Miscellaneous Medical Probl: Yes (b12 deficiency) Hx Substance Use: No Hx Tobacco Use: No Smoking Status: Former smoker Physical Exam Vitals Physical Exam Const: [] Head: Atraumatic Eyes: Normal Conjunctiva ENT: Normal External Ears, Nose and Mouth. Neck: Full range of motion..~ No meningismus. Resp: Clear to auscultation bilaterally Cardio: Regular rate and rhythm, no murmurs Abd: Soft, non tender, non distended. Normal bowel sounds Skin: No petechiae or rashes Back: No midline or flank tenderness Ext: No cyanosis, or edema Neur: Awake and alert Psych: Normal Mood and Affect Results 24 hrs Laboratory Tests Test 07/27/16 15:45 White Blood Count 6.110^3/ul Red Blood Count 4.7310^6/ul Hemoglobin 14.7g/dl Hematocrit 43.6% Mean Corpuscular Volume 92.2fl Mean Corpuscular Hemoglobin 31.1pg Mean Corpuscular Hemoglobin Concent 33.7g/dl Red Cell Distribution Width 12.6% Platelet Count 13930^3/UL Mean Platelet Volume 11.9fl Neutrophils % 58.3% Lymphocytes % 28.8% Monocytes % 11.2% Eosinophils % 0.7% Basophils % 0.5% Nucleated Red Blood Cells % 0.0/100WBC Neutrophils # 3.510^3/ul Lymphocytes # 1.810^3/ul Monocytes # 0.710^3/ul Eosinophils # 0.010^3/ul Basophils # 0.010^3/ul Nucleated Red Blood Cells # 0.010^3/ul Prothrombin Time 12.2Sec Prothrombin Time Ratio 1.0 INR International Normalized Ratio 0.91 Activated Partial Thromboplast Time 25.2Sec Sodium Level 142mmol/L Potassium Level 3.8mmol/L Chloride Level 103mmol/L Carbon Dioxide Level 26mmol/L Anion Gap 17 Blood Urea Nitrogen 17mg/dl Creatinine 0.91mg/dl Glucose Level 86mg/dl Calcium Level 9.3mg/dl Total Bilirubin 0.2mg/dl Direct Bilirubin 0.00mg/dl Indirect Bilirubin 0.2mg/dl Aspartate Amino Transf (AST/SGOT) 22IU/L Alanine Aminotransferase (ALT/SGPT) 21IU/L Alkaline Phosphatase 82IU/L Total Protein 7.2g/dl Albumin 4.2g/dl Globulin 3.00g/dl Albumin/Globulin Ratio 1.40 Current Medications Medications (Trade) Dose Ordered Sig/Néstor Route PRN Reason Start Time Stop Time Status Last Admin Dose Admin Morphine Sulfate (morphine) 4 mg ONCE STAT IV 07/27/16 15:37 07/27/16 15:39 DC 07/27/16 15:48 Ondansetron HCl 4 mg 4 mg ONCE STAT IV 07/27/16 15:37 07/27/16 15:39 DC 07/27/16 15:48 Sodium Chloride (NS) 1,000 ml @ 1,000 mls/hr Q1H STAT IV 07/27/16 15:55 07/27/16 16:54 DC 07/27/16 20:03 IV Flush 10 ml 10 ml STK-MED ONCE .ROUTE 07/27/16 17:21 07/27/16 17:22 DC 07/27/16 17:36 Sodium Chloride (NS) 100 ml @ ud STK-MED ONCE .ROUTE 07/27/16 17:21 07/27/16 17:22 DC 07/27/16 17:36 Iohexol (Omnipaque 300mg/ ml) 150 ml STK-MED ONCE .ROUTE 07/27/16 17:21 07/27/16 17:22 DC 07/27/16 17:36 Morphine Sulfate (morphine) 4 mg ONCE STAT IV 07/27/16 17:44 07/27/16 17:45 DC Departure Diagnosis: Primary Impression: Acute abdominal pain Additional Impressions: Umbilical hernia Bilateral inguinal hernia Condition: Serious Patient Instructions: Hernia (Inguinal, Ventral, Umbilical) STEVEN BECERRA MD Jul 31, 2016 04:50 Departure Diagnosis: Primary Impression: Acute abdominal pain Additional Impressions: Umbilical hernia Bilateral inguinal hernia Condition: Serious Patient Instructions: Hernia (Inguinal, Ventral, Umbilical) STEVEN BECERRA MD Jul 31, 2016 04:50
== END 2016-07-29 19:30 | disposition home or self-care (01) | DRG 352 ==
LOC: E/R 15:16 → MS2 18:42
PROVIDERS: ADMIT Internal Medicine; ATTEND Internal Medicine
PROC: 0YUA4JZ Supplement Bilateral Inguinal Region with Synthetic Substitute, Percutaneous Endoscopic Approach (ICD-10-PCS; principal; 2016-07-29)
PROC: 0WQF0ZZ Repair Abdominal Wall, Open Approach (ICD-10-PCS; 2016-07-29)
DX: K40.20 Bilateral inguinal hernia, without obstruction or gangrene, not specified as recurrent (principal); K43.9 Ventral hernia without obstruction or gangrene; D69.6 Thrombocytopenia, unspecified; K21.9 Gastro-esophageal reflux disease without esophagitis; K57.90 Diverticulosis of intestine, part unspecified, without perforation or abscess without bleeding; E53.8 Deficiency of other specified B group vitamins; Z87.891 Personal history of nicotine dependence
CPT/HCPCS: 36415; 71010; 74177; 80053; 81003; 85025; 85610; 85730; 87081; 96374; 96375; C1781; J0690; J1100; J1170; J1200; J1885; J2175; J2250; J2270; J2405; J2710; J3010; J3420; J3480; J7030; Q9967

== ENCOUNTER 2016-07-31 00:54 | Emergency (ER) | payer BC ==
[~2016-07-31] VITALS: Ht 190.5 cm; Wt 89.5 kg
[~2016-07-31 00:54] MED LIST changes: +HYDR-3498 PO; +SENN-53 PO
[2016-07-31 01:02] VITALS: Ht 190.5 cm; Wt 89.5 kg
[2016-07-31 01:38] LABS: ADD SCAN DIFF NO
[2016-07-31 01:40] LABS: BASOPHILS % 0.6 % (0.0-2.0); EOSINOPHILS # 0.1 10^3/ul (0.0-0.5); HEMATOCRIT 40.9 % (42.0-52.0); HEMOGLOBIN 13.6 g/dl (14.0-18.0); LYMPHOCYTES # 1.1 10^3/ul (0.8-2.9); LYMPHOCYTES % 21.8 % (15.0-51.0); MEAN CORPUSCULAR HEMOGLOBIN 31.3 pg (29.0-33.0); MEAN CORPUSCULAR HGB CONC 33.3 g/dl (32.0-37.0); MEAN PLATELET VOLUME 12.3 fl (7.4-10.4); MONOCYTE # 0.7 10^3/ul (0.3-0.9); MONOCYTES % 13.3 % (0.0-11.0); NEUTROPHIL # 3.1 10^3/ul (1.6-7.5); NEUTROPHILS % 63.1 % (39.0-77.0); PLATELET COUNT 110 10^3/UL (140-415); RED BLOOD COUNT 4.35 10^6/ul (4.70-6.10); RED CELL DISTRIBUTION WIDTH 12.9 % (11.5-14.5); WHITE BLOOD COUNT 4.9 10^3/ul (4.8-10.8)
[2016-07-31] MEDS ORDERED: morphine 4 MG/ML VIAL IV STA (01:43)
[2016-07-31] MEDS ORDERED: ONDANSETRON 4 MG INJ IV STA (01:43)
[2016-07-31 01:51] LABS: INR 0.94; PROTIME 12.6 Sec (12.2-14.2)
[2016-07-31 01:52] LABS: PARTIAL THROMBOPLASTIN TIME 31.4 Sec (25.0-35.0)
[2016-07-31 01:54] LABS: POTASSIUM 4.1 mmol/L (3.5-5.1)
[2016-07-31 01:57] LABS: CREATININE 0.94 mg/dl (0.61-1.24)
--- NOTE | 2016-07-31 02:30 | RADRPT ---
PROCEDURE: Ultrasound examination of bilateral lower extremities veins with Doppler. CLINICAL INDICATION: Leg pain and swelling. TECHNIQUE: Multiple sonographic images of bilateral lower extremity venous systems were performed with guillermo scale and color Doppler. COMPARISON: None. FINDINGS: Bilateral common femoral, superficial femoral and popliteal veins demonstrate normal color flow, wav eforms, compression and response to augmentation. There is no evidence of deep venous thrombosis. IMPRESSION: No evidence of deep venous thrombosis within bilateral lower extremities. .Paulo Bernard MD, MD Date Time Electronically viewed and signed by .Paulo Bernard MD, MD on 07/31/2016 02:29 .T/
[2016-07-31] MEDS ORDERED: SOD CHLORIDE 0.9% 100 ML ONE (02:45)
[2016-07-31] MEDS ORDERED: IOHEXOL 100 ML ONE (02:45)
[2016-07-31] MEDS ORDERED: HYDROCODONE/APAP (10/325) TAB PO ONE (03:30)
--- NOTE | 2016-07-31 03:37 | RADRPT ---
PROCEDURE: CT angiogram of the chest with contrast. CLINICAL INDICATION: Chest pain. TECHNIQUE: CT angiogram of the chest was obtained using a multi-detector high-resolution CT. Con tiguous axial images were obtained during the dynamic injection of 100 cc of Omnipaque 350 intraveno us contrast. Coronal and sagittal reformatted images were obtained. 3-D reformatted images were al so obtained. Images were reviewed on a PACS workstation. One or more of the following dose reduction techniques were used: - Automated exposure control. - Adjustment of the mA and/or kV according to patient size. - Use of iterative reconstruction technique. Exam CTD/vol = 12.78 mGy. Total exam DLP = 557.15 mGy-cm. COMPARISON: None. FINDINGS: The main pulmonary artery followed to the segmental divisions are well opacified. There is no filli ng defect or evidence of pulmonary embolism. The heart is normal in size. There is no pericardial thickening or effusion. The aorta is of normal course and caliber without evidence of aneurysm or d issection. There is no evidence of chest wall mass. The visualized thyroid is unremarkable. There are no enla rged axillary lymph nodes. There are no enlarged mediastinal or hilar lymph nodes by CT criteria. There is no parenchymal nodule or consolidation. There is mild bibasilar atelectasis and small righ t pleural effusion. The central tracheobronchial tree is within normal limits. Limited evaluation of the upper abdomen demonstrates mild free air. IMPRESSION: No evidence of pulmonary embolism or aortic dissection. Mild bibasilar atelectasis and small right pleural effusion. Mild pneumoperitoneum consistent with recent surgery. .Paulo Bernard MD, MD Date Time Electronically viewed and signed by .Paulo Bernard MD, MD on 07/31/2016 03:37 .T/
[2016-07-31 03:57] VITALS: BP 121/78; PULSE 82; RESP 20; TEMP 98.5
[2016-07-31] MEDS ORDERED: ALBU18HF INHALATION (03:57)
--- NOTE | 2016-07-31 04:54 | ERA ---
ER Documentation Chief Complaint Date/Time DATE: 07/31/16 TIME: 04:52 Chief Complaint left leg numbing pain HPI The patient is a 35-year-old male, presenting to the ER because of left leg pain for 1 day, dyspnea after umbilical and bilateral inguinal herniorrhaphy 2 days ago. He denies fever, chills, cough, neck pain, palpitation, diaphoresis. He complains of minimal abdominal pain due to recent surgery, denies diarrhea , constipation, dysuria. He does not smoke, drink Past medical history: None ROS All systems reviewed and are negative except as per history of present illness. Medications Home Meds Active Scripts Albuterol Sulfate* (Ventolin HFA*) 18 Gm Hfa.aer.ad, 2 PUFF INHALATION Q4H, #1 INHALER Prov:STEVEN BECERRA MD 07/31/16 Sennosides* (Senna Lax*) 8.6 Mg Tablet, 1 TAB PO Q12H Y for CONSTIPATION for 7 Days, #14 TAB 0 Refills Prov:STEVEN MÉNDEZ MD 07/29/16 Hydrocodone Bit-Acetaminophen (Hydrocodone Bit-APAP) 5-325MG Tablet, 2 TAB PO Q4H Y for Pain 6-10 for 7 Days, #30 TAB 0 Refills Prov:STEVEN MÉNDEZ MD 07/29/16 Hydrocodone Bit-Acetaminophen (Hydrocodone Bit-APAP) 5-325MG Tablet, 1 TAB PO Q4H Y for Pain 1-5 for 7 Days, #30 TAB 0 Refills Prov:STEVEN MÉNDEZ MD 07/29/16 Discontinued Reported Medications Levofloxacin* (Levofloxacin*) 500 Mg Tablet, 500 MG PO DAILY for FOR TESTICLE INFECTION, TAB 12/30/15 Cyanocobalamin* (Vitamin B-12* SL) 1,000 Mcg Tab.subl, 1000 MCG SL Q7D, TAB 08/13/15 Allergies Allergies: Coded Allergies: No Known Allergy (Verified , 07/28/16) PMhx/Soc History of Surgery: Yes (left mandibular cystectomy, left second toe spur removal,hernia repair) Anesthesia Reaction: No Hx Neurological Disorder: No Hx Respiratory Disorders: No Hx Cardiac Disorders: No Hx Psychiatric Problems: No Hx Miscellaneous Medical Probl: Yes (b12 deficiency) Hx Alcohol Use: Yes (occasional) Hx Substance Use: No Hx Tobacco Use: Yes (ex-smoker) Smoking Status: Former smoker Physical Exam Vitals Vital Signs Date Time Temp Pulse Resp B/P Pulse Ox O2 Delivery O2 Flow Rate FiO2 07/31/16 03:57 98.5 82 20 121/78 Room Air 07/31/16 03:02 18 121/77 Nasal Cannula 2.0 07/31/16 01:25 98.6 84 20 125/81 Nasal Cannula 2.0 07/31/16 01:02 98.4 87 18 130/73 100 Physical Exam Const: No acute distress. Head: Atraumatic. Eyes: Normal Conjunctiva. ENT: Normal External Ears, Nose and Mouth. Neck: Full range of motion. No meningismus. Resp: Clear to auscultation bilaterally. Cardio: Regular rate and rhythm, no murmurs. Abd: Soft, non distended, normal bowel sounds, non tender. Skin: No petechiae or rashes. Back: No midline or flank tenderness. Ext: No cyanosis, or edema. Minimal left calf tenderness Neur: Awake and alert. No focal deficit Psych: Normal Mood and Affect. Result Diagram: 07/31/16 0121 07/31/16 0121 Results 24 hrs Laboratory Tests Test 07/31/16 01:21 White Blood Count 4.910^3/ul Red Blood Count 4.3510^6/ul Hemoglobin 13.6g/dl Hematocrit 40.9% Mean Corpuscular Volume 94.0fl Mean Corpuscular Hemoglobin 31.3pg Mean Corpuscular Hemoglobin Concent 33.3g/dl Red Cell Distribution Width 12.9% Platelet Count 21923^3/UL Mean Platelet Volume 12.3fl Neutrophils % 63.1% Lymphocytes % 21.8% Monocytes % 13.3% Eosinophils % 1.0% Basophils % 0.6% Nucleated Red Blood Cells % 0.0/100WBC Neutrophils # 3.110^3/ul Lymphocytes # 1.110^3/ul Monocytes # 0.710^3/ul Eosinophils # 0.110^3/ul Basophils # 0.010^3/ul Nucleated Red Blood Cells # 0.010^3/ul Prothrombin Time 12.6Sec Prothrombin Time Ratio 1.0 INR International Normalized Ratio 0.94 Activated Partial Thromboplast Time 31.4Sec Sodium Level 144mmol/L Potassium Level 4.1mmol/L Chloride Level 102mmol/L Carbon Dioxide Level 29mmol/L Anion Gap 17 Blood Urea Nitrogen 10mg/dl Creatinine 0.94mg/dl Glucose Level 103mg/dl Calcium Level 9.0mg/dl Current Medications Medications (Trade) Dose Ordered Sig/Néstor Route PRN Reason Start Time Stop Time Status Last Admin Dose Admin Morphine Sulfate (morphine) 4 mg ONCE STAT IV 07/31/16 01:43 07/31/16 03:03 DC Ondansetron HCl (Zofran Inj) 4 mg ONCE STAT IV 07/31/16 01:43 07/31/16 01:48 DC IV Flush 10 ml 10 ml STK-MED ONCE .ROUTE 07/31/16 02:45 07/31/16 02:46 DC 07/31/16 03:17 Sodium Chloride 100 ml @ ud STK-MED ONCE .ROUTE 07/31/16 02:45 07/31/16 02:46 DC 07/31/16 03:18 Iohexol (Omnipaque) 100 ml @ ud STK-MED ONCE .ROUTE 07/31/16 02:45 07/31/16 02:46 DC 07/31/16 03:21 Acetaminophen/ Hydrocodone Bitart ([place] ()) 1 tab ONCE ONCE PO 07/31/16 03:30 07/31/16 03:31 DC 07/31/16 03:09 Procedures/[place] [id number] Radiology Main Line: [phone] DIAGNOSTIC IMAGING REPORT Patient: STEVEN MAHAJAN : 1980 Age: 35 Sex: M MR #: [id number] DOS: 07/31/16 0108 Ordering MD: STEVEN BECERRA MD Location: E/R Room/Bed: PROCEDURE: Ultrasound examination of bilateral lower extremities veins with Doppler. CLINICAL INDICATION: Leg pain and swelling. TECHNIQUE: Multiple sonographic images of bilateral lower extremity venous systems were performed with guillermo scale and color Doppler. COMPARISON: None. FINDINGS: Bilateral common femoral, superficial femoral and popliteal veins demonstrate normal color flow, waveforms, compression and response to augmentation. There is no evidence of deep venous thrombosis. IMPRESSION: No evidence of deep venous thrombosis within bilateral lower extremities. .Paulo Bernard MD, MD Date Time Electronically viewed and signed by .Paulo Bernard MD, MD on 07/31/2016 02:29 .T/ CC: STEVEN BECERRA MD [place] [id number] Radiology Main Line: [phone] DIAGNOSTIC IMAGING REPORT Patient: STEVEN MAHAJAN : 1980 Age: 35 Sex: M MR #: [id number] DOS: 07/31/16 0143 Ordering MD: STEVEN BECERRA MD Location: E/R Room/Bed: PROCEDURE: CT angiogram of the chest with contrast. CLINICAL INDICATION: Chest pain. TECHNIQUE: CT angiogram of the chest was obtained using a multi-detector high -resolution CT. Contiguous axial images were obtained during the dynamic injection of 100 cc of Omnipaque 350 intravenous contrast. Coronal and sagittal reformatted images were obtained. 3-D reformatted images were also obtained. Images were reviewed on a PACS workstation. One or more of the following dose reduction techniques were used: - Automated exposure control. - Adjustment of the mA and/or kV according to patient size. - Use of iterative reconstruction technique. Exam CTD/vol = 12.78 mGy. Total exam DLP = 557.15 mGy-cm. COMPARISON: None. FINDINGS: The main pulmonary artery followed to the segmental divisions are well opacified. There is no filling defect or evidence of pulmonary embolism. The heart is normal in size. There is no pericardial thickening or effusion. The aorta is of normal course and caliber without evidence of aneurysm or dissection. There is no evidence of chest wall mass. The visualized thyroid is unremarkable. There are no enlarged axillary lymph nodes. There are no enlarged mediastinal or hilar lymph nodes by CT criteria. There is no parenchymal nodule or consolidation. There is mild bibasilar atelectasis and small right pleural effusion. The central tracheobronchial tree is within normal limits. Limited evaluation of the upper abdomen demonstrates mild free air. IMPRESSION: No evidence of pulmonary embolism or aortic dissection. Mild bibasilar atelectasis and small right pleural effusion. Mild pneumoperitoneum consistent with recent surgery. .Paulo Bernard MD, MD Date Time Electronically viewed and signed by .Paulo Bernard MD, on 07/31/2016 03:37 .T/ CC: STEVEN BECERRA MD MEDICAL MAKING DECISION: The patient is a 35-year-old, presenting with acute left flank pain, acute dyspnea after surgery. He was treated with [place] and Zofran for pain and nausea with good response. The differential diagnoses considered include but are not limited to DVT, asthma, COPD, pneumonia, pulmonary embolus, pleural effusion, congestive heart failure. Departure Diagnosis: Primary Impression: Dyspnea Additional Impressions: Thrombocytopenia Anemia Condition: Good Patient Instructions: Dyspnea Referrals: ALEX HENSLEY M.D. Additional Instructions: Call your primary care doctor TOMORROW for an appointment during the next 1-2 days.See the doctor sooner or return here if your condition worsens before your appointment time. Follow-up with for your thrombocytopenia Patient's blood pressure was elevated (>120/80) but appears stable without evidence of hypertension emergency or urgency. The patient was counseled about the risks of hypertension and urged to pursue outpatient monitoring and therapy within a week with their primary care physician. STEVEN BECERRA MD Jul 31, 2016 04:53
== END 2016-07-31 04:00 | disposition home or self-care (01) ==
LOC: E/R 00:54
DX: R06.00 Dyspnea, unspecified (principal); R40.2142 Coma scale, eyes open, spontaneous, at arrival to emergency department; D69.6 Thrombocytopenia, unspecified; D64.9 Anemia, unspecified; R40.2252 Coma scale, best verbal response, oriented, at arrival to emergency department; R40.2362 Coma scale, best motor response, obeys commands, at arrival to emergency department; Z87.891 Personal history of nicotine dependence
CPT/HCPCS: 36415; 71275; 80048; 85025; 85610; 85730; 93970; 99285; Q9967; J2270; J2405

== ENCOUNTER 2016-08-31 06:20 | Emergency (ER) | payer BC ==
[~2016-08-31] VITALS: Ht 190.5 cm; Wt 87.3 kg
[~2016-08-31 06:20] MED LIST changes: +ALBU18HF INHALATION; +ALPR0.5T PO; +CYANOCOBALAMIN; +IBUP800T25 PO; +NAPR-260 PO; +ONDA4TAB35 PO; +[UNRECOGNIZED DRUG - CODE] IM
[2016-08-31 06:25] VITALS: Ht 190.5 cm; Wt 87.3 kg
[2016-08-31] MEDS ORDERED: ONDANSETRON 4 MG INJ IV STA ×2 (06:28→06:51)
[2016-08-31] MEDS ORDERED: morphine 4 MG/ML VIAL IV STA (06:28)
[2016-08-31] MEDS ORDERED: SOD CHLORIDE 0.9% 1,000 ML IV STA (06:28)
[2016-08-31] MEDS ORDERED: MULTIVITAMINS 10 ML, THIAMINE 100 MG, FOLIC ACID 1 MG, MAGNESIUM SULFATE 2 GM in SOD CH... IV ONE (06:30)
[2016-08-31] MEDS: LOPERAMIDE 2 MG CAP PO ONE ×2 (06:30→06:41)
[2016-08-31 06:47] LABS: ADD SCAN DIFF NO
[2016-08-31 06:55] LABS: ABNORMAL IP MESSAGE 1; BASOPHILS % 0.1 % (0.0-2.0); EOSINOPHILS # 0.1 10^3/ul (0.0-0.5); EOSINOPHILS % 0.8 % (0.0-7.0); HEMATOCRIT 50.7 % (42.0-52.0); HEMOGLOBIN 16.5 g/dl (14.0-18.0); LYMPHOCYTES # 0.4 10^3/ul (0.8-2.9); LYMPHOCYTES % 2.9 % (15.0-51.0); MEAN CORPUSCULAR HEMOGLOBIN 30.1 pg (29.0-33.0); MEAN CORPUSCULAR HGB CONC 32.5 g/dl (32.0-37.0); MEAN CORPUSCULAR VOLUME 92.5 fl (82.0-101.0); MEAN PLATELET VOLUME 12.3 fl (7.4-10.4); MONOCYTE # 0.5 10^3/ul (0.3-0.9); MONOCYTES % 4.3 % (0.0-11.0); NEUTROPHIL # 11.2 10^3/ul (1.6-7.5); NEUTROPHILS % 91.2 % (39.0-77.0); PLATELET COUNT 126 10^3/UL (140-415); RED BLOOD COUNT 5.48 10^6/ul (4.70-6.10); RED CELL DISTRIBUTION WIDTH 12.9 % (11.5-14.5); WHITE BLOOD COUNT 12.3 10^3/ul (4.8-10.8)
[2016-08-31] MEDS ORDERED: METOCLOPRAMIDE 10 MG INJ IV ONE (07:00)
[2016-08-31 07:06] LABS: ALBUMIN 4.9 g/dl (3.3-4.9); ALBUMIN/GLOBULIN RATIO 1.28; BILIRUBIN,INDIRECT 0.6 mg/dl (0-1.1); BILIRUBIN,TOTAL 0.6 mg/dl (0.2-1.3); CALCIUM 9.8 mg/dl (8.4-10.2); CREATININE 1.05 mg/dl (0.61-1.24); POTASSIUM 4.4 mmol/L (3.5-5.1); TOTAL PROTEIN 8.7 g/dl (6.1-8.1)
[2016-08-31] MEDS ORDERED: ONDA4TAB14 PO (07:59)
[2016-08-31] MEDS ORDERED: HYDR-902 PO (07:59)
[2016-08-31] MEDS ORDERED: LOPE2CAP PO (07:59)
--- NOTE | 2016-08-31 08:20 | ERD ---
ER Documentation Chief Complaint Date/Time DATE: 08/31/16 TIME: 08:18 Chief Complaint UPPER BILATERAL ABD PAIN, N/V X 5, DIARRHEA X11 HPI Patient is a 35-year-old male with no medical problems who presents with abdominal pain and vomiting. The patient said that he had fish from [email or web address] 2 nights ago and then had leftovers last night as well. His stepson was sick 2 days ago with vomiting and then at 2 AM the patient started with abdominal pain , nausea, vomiting, and diarrhea. The patient has had 8-10 episodes of diarrhea and multiple episodes of vomiting and now is vomiting green bile. The abdominal pain is upper abdominal pain and constant. The patient is taking amoxicillin currently for a dental infection. The patient's primary doctor is Dr. Rey. ROS All systems reviewed and are negative except as per history of present illness. Medications Home Meds Active Scripts Loperamide Hcl* (Imodium*) 2 Mg Capsule, 2 MG PO .AFTER EA LOOSE BM Y for DIARRHEA, #10 TAB Prov:YAMILET DE JESUS MD 08/31/16 Ondansetron (Ondansetron Odt) 4 Mg Tab.rapdis, 4 MG PO Q6H Y for NAUSEA AND/OR VOMITING, #30 TAB Prov:YAMILET DE JESUS MD 08/31/16 Hydrocodone/Acetaminophen (Terry 10-325 Tablet) 1 Each Tablet, 1 TAB PO Q6H Y for PAIN, #7 TAB Prov:YAMILET DE JESUS MD 08/31/16 Albuterol Sulfate* (Ventolin HFA*) 18 Gm Hfa.aer.ad, 2 PUFF INHALATION Q4H, #1 INHALER Prov:STEVEN BECERRA MD 07/31/16 Sennosides* (Senna Lax*) 8.6 Mg Tablet, 1 TAB PO Q12H Y for CONSTIPATION for 7 Days, #14 TAB 0 Refills Prov:STEVEN REY MD 07/29/16 Hydrocodone Bit-Acetaminophen (Hydrocodone Bit-APAP) 5-325MG Tablet, 2 TAB PO Q4H Y for Pain 6-10 for 7 Days, #30 TAB 0 Refills Prov:STEVEN REY MD 07/29/16 Hydrocodone Bit-Acetaminophen (Hydrocodone Bit-APAP) 5-325MG Tablet, 1 TAB PO Q4H Y for Pain 1-5 for 7 Days, #30 TAB 0 Refills Prov:STEVEN REY MD 07/29/16 Allergies Allergies: Coded Allergies: No Known Allergy (Verified , 07/28/16) PMhx/Soc History of Surgery: Yes (left mandibular cystectomy, left second toe spur removal,hernia repair) Anesthesia Reaction: No Hx Neurological Disorder: No Hx Respiratory Disorders: No Hx Cardiac Disorders: No Hx Psychiatric Problems: No Hx Miscellaneous Medical Probl: Yes (b12 deficiency) Hx Alcohol Use: Yes (occasional) Hx Substance Use: No Hx Tobacco Use: Yes (ex-smoker) Smoking Status: Former smoker FmHx Family History: No diabetes Physical Exam Vitals Vital Signs Date Time Temp Pulse Resp B/P Pulse Ox O2 Delivery O2 Flow Rate FiO2 08/31/16 06:25 99.6 105 18 120/102 100 Physical Exam Const: Moderate distress secondary to abdominal pain and nausea Head: Atraumatic Eyes: Normal Conjunctiva ENT: Normal External Ears, Nose and Mouth. Neck: Full range of motion..~ No meningismus. Resp: Clear to auscultation bilaterally Cardio: Regular rate and rhythm, no murmurs Abd: Soft, midepigastric tenderness to palpation without rebound or guarding Skin: No petechiae or rashes Back: No midline or flank tenderness Ext: No cyanosis, or edema Neur: Awake and alert Psych: Normal Mood and Affect Result Diagram: 08/31/16 0630 08/31/16 0630 Results 24 hrs Laboratory Tests Test 08/31/16 06:30 White Blood Count 12.310^3/ul Red Blood Count 5.4810^6/ul Hemoglobin 16.5g/dl Hematocrit 50.7% Mean Corpuscular Volume 92.5fl Mean Corpuscular Hemoglobin 30.1pg Mean Corpuscular Hemoglobin Concent 32.5g/dl Red Cell Distribution Width 12.9% Platelet Count 59428^3/UL Mean Platelet Volume 12.3fl Neutrophils % 91.2% Lymphocytes % 2.9% Monocytes % 4.3% Eosinophils % 0.8% Basophils % 0.1% Nucleated Red Blood Cells % 0.0/100WBC Neutrophils # 11.210^3/ul Lymphocytes # 0.410^3/ul Monocytes # 0.510^3/ul Eosinophils # 0.110^3/ul Basophils # 0.010^3/ul Nucleated Red Blood Cells # 0.010^3/ul Sodium Level 139mmol/L Potassium Level 4.4mmol/L Chloride Level 104mmol/L Carbon Dioxide Level 26mmol/L Anion Gap 13 Blood Urea Nitrogen 20mg/dl Creatinine 1.05mg/dl Glucose Level 116mg/dl Calcium Level 9.8mg/dl Total Bilirubin 0.6mg/dl Direct Bilirubin 0.00mg/dl Indirect Bilirubin 0.6mg/dl Aspartate Amino Transf (AST/SGOT) 27IU/L Alanine Aminotransferase (ALT/SGPT) 30IU/L Alkaline Phosphatase 92IU/L Total Protein 8.7g/dl Albumin 4.9g/dl Globulin 3.80g/dl Albumin/Globulin Ratio 1.28 Lipase 103U/L Current Medications Medications (Trade) Dose Ordered Sig/Néstor Route PRN Reason Start Time Stop Time Status Last Admin Dose Admin Sodium Chloride (NS) 1,000 ml @ 1,000 mls/hr Q1H STAT IV 08/31/16 06:28 08/31/16 07:27 DC 08/31/16 06:41 Morphine Sulfate (morphine) 4 mg ONCE STAT IV 08/31/16 06:28 08/31/16 06:29 DC 08/31/16 06:41 Ondansetron HCl (Zofran Inj) 4 mg ONCE STAT IV 08/31/16 06:28 08/31/16 06:29 DC 08/31/16 06:41 Loperamide HCl 2 mg 2 mg ONCE ONCE PO 08/31/16 06:30 08/31/16 06:31 DC 08/31/16 06:41 Multivitamins/ Thiamine HCl/ Folic Acid/ Magnesium Sulfate/ Sodium Chloride (Mvi Adult/ Vitamin B1/Folic Acid/Magnesium Sulfate/NS) 1,015.2 ml @ 500 mls/ hr Q2H2M ONCE IV 08/31/16 06:30 08/31/16 08:31 08/31/16 07:14 Ondansetron HCl (Zofran Inj) 4 mg ONCE STAT IV 08/31/16 06:51 08/31/16 06:52 DC 08/31/16 06:52 Metoclopramide HCl (Reglan) 10 mg ONCE ONCE IV 08/31/16 07:00 08/31/16 07:01 DC 08/31/16 06:53 Procedures/MDM Patient is a 35-year-old male presents with acute abdominal pain and vomiting diarrhea. The patient may have food poisoning versus a viral illness. The patient did have hernia surgery 4 weeks ago but at this point his abdomen is soft and I do not think the patient has acute bowel obstruction. He has had [address] scans and I believe the risks of doing another CT scan outweigh the benefits. At this point I doubt cholecystitis, pancreatitis, appendicitis, or bowel obstruction. The patient was given fluids as well as Zofran and Reglan and feels much better. He was also given morphine for pain. I believe outpatient management is appropriate but the patient should follow-up with his primary doctor within 24 hours for reevaluation. The patient be given a prescription for Terry and Zofran for symptomatically relief. Departure Diagnosis: Primary Impression: Vomiting and diarrhea Additional Impression: Abdominal pain Abdominal location: epigastric Qualified Code: R10.13 - Epigastric pain Condition: Fair Patient Instructions: Abdominal Pain, Self-Care for Vomiting and Diarrhea Additional Instructions: Call your primary care doctor TOMORROW for an appointment during the next 1-2 days.See the doctor sooner or return here if your condition worsens before your appointment time. YAMILET DE JESUS MD Aug 31, 2016 08:20
[2016-08-31 08:42] VITALS: BP 99/43; PULSE 111; RESP 18; TEMP 99.6
== END 2016-08-31 10:02 | disposition home or self-care (01) ==
LOC: E/R 06:20
DX: R11.10 Vomiting, unspecified (principal); R40.2252 Coma scale, best verbal response, oriented, at arrival to emergency department; R19.7 Diarrhea, unspecified; R10.13 Epigastric pain; R40.2142 Coma scale, eyes open, spontaneous, at arrival to emergency department; R40.2362 Coma scale, best motor response, obeys commands, at arrival to emergency department; Z87.891 Personal history of nicotine dependence
CPT/HCPCS: 36415; 80053; 83690; 85025; 96374; 96375; 99284; J2270; J2405; J2765; J3411; J3475; J7030

== ENCOUNTER → 2017-07-05 | Outpatient (CLI) | END | disposition home or self-care (01) ==